=== PATIENT | female | born 1980 | race Caucasian/White ===

== ENCOUNTER 2018-10-10 12:08 | Emergency (ER) | payer OTHER ==
[~2018-10-10] VITALS: Ht 162.6 cm; Wt 115.2 kg
[2018-10-10] MEDS ORDERED: Lexapro20 MG PO (14:04)
[2018-10-10] MEDS ORDERED: Omeprazole20 M1 (14:04)
[2018-10-10] MEDS ORDERED: PROP10 PO (14:05)
== END 2018-10-10 15:46 | disposition home or self-care (01) ==
LOC: ER 12:08
DX: S40.212A Abrasion of left shoulder, initial encounter (principal); M54.2 Cervicalgia; F17.200 Nicotine dependence, unspecified, uncomplicated; V49.40XA Driver injured in collision with unspecified motor vehicles in traffic accident, initial encounter; W22.10XA Striking against or struck by unspecified automobile airbag, initial encounter
CPT/HCPCS: 71046; 73030; 99283-25

== ENCOUNTER → 2019-07-23 | Outpatient (CLI) | payer OTHER ==
[~2019-07-23] MED LIST: Lexapro20 MG PO; Omeprazole20 M1; PROP10 PO
== END ==
LOC: LAB EV 10:21 → LAB SHORT 10:21
DX: R07.0 Pain in throat (principal)
CPT/HCPCS: 87081

== ENCOUNTER → 2019-11-12 | Outpatient (CLI) | payer OTHER | END | disposition home or self-care (01) | LOC: LAB 09:25 → LAB SHORT 09:25 | DX: Z34.93 Encounter for supervision of normal pregnancy, unspecified, third trimester (principal) | CPT/HCPCS: 36415; 87081; 87653 ==

== ENCOUNTER 2019-12-04 05:03 | Inpatient (IN) | payer OTHER ==
[~2019-12-04] VITALS: Ht 162.6 cm; Wt 116.4 kg
[2019-12-04] MEDS ORDERED: PRENATAL TABLE1 EAC2 (06:01)
[2019-12-04] MEDS ORDERED: IRON150C (06:01)
[2019-12-04] MEDS ORDERED: LABE100 PO (06:01)
[2019-12-04 06:45] LABS: BASOPHILS ABSOLUTE AUTO 0.03 K/mm3 (0.00-0.23); BASOPHILS PERCENT AUTO 0 % (0-2); EOSINOPHILS ABSOLUTE AUTO 0.13 K/mm3 (0.00-0.68); EOSINOPHILS PERCENT AUTO 1 % (0-6); Hematocrit 36.2 % (33.0-51.0); Hemoglobin 11.6 g/dL (11.5-16.0); IMMATURE GRAN ABSOLUTE AUTO 0.06 K/mm3 (0.00-0.10); IMMATURE GRAN PERCENT AUTO 0 % (0-1); LYMPHOCYTES ABSOLUTE AUTO 1.91 K/mm3 (0.84-5.20); LYMPHOCYTES PERCENT AUTO 14 % (21-46); MONOCYTES PERCENT AUTO 5 % (4-13); Mean Corpuscular HGB 26.3 pg (26.0-34.0); Mean Corpuscular Volume 82 fL (80-100); Mean Platelet Volume 10.7 fL (9.1-12.4); NEUTROPHILS ABSOLUTE AUTO 10.75 K/mm3 (1.96-9.15); NEUTROPHILS PERCENT AUTO 80 % (41-73); Platelet Count 267 K/mm3 (150-400); RDW Coefficient Variation 14.7 % (11.7-14.2); RDW Standard Deviation 44.6 fL (35.1-46.3); Red Blood Cell Count 4.41 M/mm3 (3.80-5.20); White Blood Cell Count 13.48 K/mm3 (4.00-11.30)
--- NOTE | 2019-12-04 17:08 | NUR ---
RN ROUNDED ON MOTHER AND NB SHORTLY AFTER . MOTHER HAS PCOS AND GESTATION DIABETES. RN TALKED WITH MOM ABOUT POTENTIAL MILK PRODUCTION WITH MOM, MOM VERBALIZED UNDERSTANDING. NB NOT INTERESTED IN FEEDING AT THIS TIME. RN INSTRUCT/DEMO HOW TO HAND EXPRESS COLOSTRUM INTO NB MOUTH AND CORRECT LATCH AND POSITIONING AND WHAT TO LOOK FOR IN A CORRECT LATCH WITH NB IS AWAKE. MOTHER VERBALIZED UNDERSTANDING. NO FURTHER QUESTIONS OR CONCERNS.
[2019-12-05 06:02] LABS: Hematocrit 32.3 % (33.0-51.0); Hemoglobin 10.4 g/dL (11.5-16.0); Mean Corpuscular HGB 26.5 pg (26.0-34.0); Mean Corpuscular HGB Conc 32.2 g/dL (31.5-36.5); Mean Corpuscular Volume 82 fL (80-100); Mean Platelet Volume 10.1 fL (9.1-12.4); Platelet Count 234 K/mm3 (150-400); RDW Coefficient Variation 14.8 % (11.7-14.2); RDW Standard Deviation 44.4 fL (35.1-46.3); Red Blood Cell Count 3.92 M/mm3 (3.80-5.20); White Blood Cell Count 11.94 K/mm3 (4.00-11.30)
--- NOTE | 2019-12-05 11:01 | NUR ---
REPORT TO LUCY YEBOAH RN
[2019-12-05] MEDS ORDERED: IBUP800 PO (11:19)
== END 2019-12-05 17:34 | disposition home or self-care (01) | DRG 806 ==
LOC: OBS 05:03 → BC 05:21 → OBS 06:00 → BC 06:03
PROVIDERS: Obstetrics & Gynecology; ADMIT Advanced Practice Midwife
PROC: 10E0XZZ Delivery of Products of Conception, External Approach (ICD-10-PCS; principal; 2019-12-04)
PROC: 10907ZC Drainage of Amniotic Fluid, Therapeutic from Products of Conception, Via Natural or Artificial Opening (ICD-10-PCS; 2019-12-04)
DX: O24.420 Gestational diabetes mellitus in childbirth, diet controlled (principal); O10.92 Unspecified pre-existing hypertension complicating childbirth; Z37.0 Single live birth; Z3A.39 39 weeks gestation of pregnancy; O69.1XX0 Labor and delivery complicated by cord around neck, with compression, not applicable or unspecified; O35.9XX0 Maternal care for (suspected) fetal abnormality and damage, unspecified, not applicable or unspecified; O71.82 Other specified trauma to perineum and vulva; O76 Abnormality in fetal heart rate and rhythm complicating labor and delivery
CPT/HCPCS: 36415; 82947; 85025; 85027; 85460; 86850; 86900; 86901; J2590; J2791; J7120